=== PATIENT | male | born 1985 | race Caucasian/White ===

== ENCOUNTER 2018-04-06 11:19 | Day surgery (SDC) | payer BC ==
[~2018-04-06] VITALS: Ht 180.3 cm; Wt 138.8 kg
[2018-04-06] MEDS ORDERED: NO HOME MEDS (12:13)
[2018-04-06 12:18] LABS: BASOPHILS % (AUTO) 0.4 % (0-1); EOSINOPHILS # (AUTO) 0.1 X10'3 (0-0.9); EOSINOPHILS % (AUTO) 1.2 % (0-6); HEMATOCRIT 41.1 % (42.0-52.0); HEMOGLOBIN 13.7 g/dl (14.0-17.9); LYMPHOCYTES # (AUTO) 1.6 X10'3 (1.1-4.8); LYMPHOCYTES % (AUTO) 26.3 % (21-51); MEAN CORPUSCULAR HGB CONC 33.4 g/dL (33.0-36.5); MEAN CORPUSCULAR VOLUME 89.8 FL (78-98); MONOCYTES # (AUTO) 0.4 X10'3 (0-0.9); MONOCYTES % (AUTO) 5.8 % (2-12); NEUTROPHILS % (AUTO) 66.3 % (42-75); PLATELET COUNT 271 X10'3 (140-440); RED BLOOD COUNT 4.58 X10'6 (4.70-6.10); RED CELL DISTRIBUTION WIDTH 13.1 % (11.5-14.5)
[2018-04-06 12:27] LABS: ALBUMIN 4.1 G/DL (3.4-5.0); ANION GAP 10 (8-16); BLOOD UREA NITROGEN 12 MG/DL (7-18); BUN/CREATININE RATIO 13.5 (5.4-32.0); CALCIUM 8.8 MG/DL (8.5-10.1); CHLORIDE 102 MMOL/L (99-107); CREATININE 0.89 MG/DL (0.60-1.10); GLUCOSE 86 MG/DL (70-104); SODIUM 138 MMOL/L (135-145); TOTAL CARBON DIOXIDE 26.3 MMOL/L (24-32); eGFR > 90 ML/MIN
[2018-04-06 12:32] LABS: INR 1.1 INR; PARTIAL THROMBOPLASTIN TIME 28 SECONDS (22-32); PROTHROMBIN TIME 10.7 SECONDS (9.0-12.0)
[2018-04-06 12:58] LABS: CLARITY,URINE CLEAR (Clear); COLOR,URINE YELLOW (Yellow); GLUCOSE, URINE NEGATIVE (Neg); KETONES,URINE NEGATIVE (Neg); LEUKOCYTE ESTERASE ,URINE NEGATIVE (Neg); NITRITES, URINE NEGATIVE (Neg); OCCULT BLOOD,URINE MODERATE (Neg); PROTEIN,URINE 30 mg/dl (Neg); UROBILINOGEN,URINE 0.2 E.U/dL (0.2-1.0)
[2018-04-06 12:59] LABS: UA COLLECTION TYPE NON-SPECIFIED
[2018-04-06 13:03] LABS: BACTERIA,URINE 1+ /HPF (Neg); MUCUS STRANDS MODERATE /LPF (Neg); SQUAMOUS EPITHELIAL CELL,UR FEW /LPF (FEW); WBC,URINE 0-4 /HPF (0-4)
[2018-04-06] MEDS ORDERED: LIDOcaine 1% 30ml preserv. free vial IJ STA (13:05)
[2018-04-06 13:08] VITALS: BP 147/81
[2018-04-06] MEDS ORDERED: MIDAZolam 5mg/ml 2ml vial IV ONE (13:30)
[2018-04-06 14:27] LABS: PLATELET FUNCTION (ADP) 134 SECONDS (63-104)
== END 2018-04-06 15:10 | disposition home or self-care (01) ==
LOC: SSTAY O 11:19
PROVIDERS: ATTEND Internal Medicine Critical Care Medicine
DX: R31.0 Gross hematuria (principal); Z00.00 Encounter for general adult medical examination without abnormal findings; Z53.20 Procedure and treatment not carried out because of patient's decision for unspecified reasons
CPT/HCPCS: 36415; 80048; 81001; 85025; 85576; 85610; 85730; 86885; 86900; 86901; 86920; J2250; J3490

== ENCOUNTER 2018-04-07 10:03 | Day surgery (SDC) | payer BC ==
[~2018-04-07] VITALS: Ht 180.3 cm; Wt 138.8 kg
[2018-04-07] VITALS (15 sets, daily range): BP systolic 120–153; BP diastolic 62–82
[~2018-04-07 10:03] MED LIST: NO HOME MEDS
[2018-04-07] MEDS ORDERED: MIDAZolam 5mg/ml 2ml vial IV ONE (10:35)
[2018-04-07] MEDS ORDERED: NORMAL SALINE IV ONE (10:40)
[2018-04-07] MEDS ORDERED: DESMOPRESSIN IV ONE (10:40)
--- NOTE | 2018-04-07 11:55 | NUR ---
Pt complained of flushed feeling in face after DDAVP infusion. Vitals checked and in stable condition. Will monitor closely. Addendum: 04/07/18 at 1326 by Dirk Soriano RN Amended: Links added.
--- NOTE | 2018-04-07 12:30 | NUR ---
Pt feeling better now and flushed feeling gone now. Vital continue stable. Addendum: 04/07/18 at 1326 by Dirk Soriano RN Amended: Links added.
[2018-04-07] MEDS ORDERED: LIDOcaine 1% 30ml preserv. free vial SQ STA (13:49)
[2018-04-07 14:01] LABS: HEMATOCRIT 40.9 % (42.0-52.0); HEMOGLOBIN 13.6 g/dl (14.0-17.9); MEAN CORPUSCULAR HGB CONC 33.3 g/dL (33.0-36.5); MEAN CORPUSCULAR VOLUME 89.9 FL (78-98); PLATELET COUNT 286 X10'3 (140-440); RED BLOOD COUNT 4.55 X10'6 (4.70-6.10); RED CELL DISTRIBUTION WIDTH 13.2 % (11.5-14.5)
[2018-04-07] MEDS ORDERED: MIDAZolam 5mg/ml 2ml vial IV STA (14:08)
[2018-04-07] MEDS ORDERED: acetaminophen w/codeine (30MG) #3 tablet PO PRN (15:25)
[2018-04-07 15:38] LABS: HEMOGLOBIN 13.4 g/dl (14.0-17.9); MEAN CORPUSCULAR HGB CONC 33.6 g/dL (33.0-36.5); MEAN CORPUSCULAR VOLUME 89.6 FL (78-98); MEAN PLATELET VOLUME 7.9 FL (7.4-10.4); PLATELET COUNT 285 X10'3 (140-440); RED BLOOD COUNT 4.47 X10'6 (4.70-6.10); WHITE BLOOD COUNT 10.6 X10'3 (4.5-11.0)
[2018-04-07 16:51] LABS: HEMATOCRIT 40.6 % (42.0-52.0); HEMOGLOBIN 13.4 g/dl (14.0-17.9); MEAN CORPUSCULAR HGB CONC 33.1 g/dL (33.0-36.5); MEAN CORPUSCULAR VOLUME 90.5 FL (78-98); MEAN PLATELET VOLUME 7.9 FL (7.4-10.4); PLATELET COUNT 279 X10'3 (140-440); RED BLOOD COUNT 4.48 X10'6 (4.70-6.10); RED CELL DISTRIBUTION WIDTH 12.9 % (11.5-14.5); WHITE BLOOD COUNT 9.6 X10'3 (4.5-11.0)
== END 2018-04-07 17:30 | disposition home or self-care (01) ==
LOC: SSTAY O 10:03
PROVIDERS: ATTEND Internal Medicine Critical Care Medicine
DX: N02.0 Recurrent and persistent hematuria with minor glomerular abnormality (principal); I10 Essential (primary) hypertension; R04.2 Hemoptysis; G47.30 Sleep apnea, unspecified; E66.9 Obesity, unspecified
CPT/HCPCS: 36415; 50200; 76942; 85027; 85576; 86885; 86920; J2250; J2597; J3490; J7040